=== PATIENT | female | born 1990 | race African-American/Black ===

== ENCOUNTER 2017-12-26 15:16 | Outpatient (CLI) | payer OTHER ==
[2017-12-26 15:46] LABS: ADD MAN DIFF? NO
[2017-12-26 15:48] LABS: BASOPHILS % 0.2 % (0.0-2.0); EOSINOPHILS # 0.1 10^3/ul (0.0-0.5); EOSINOPHILS % 0.5 % (0.0-7.0); HEMATOCRIT 35.4 % (37.0-47.0); HEMOGLOBIN 11.8 g/dl (12.0-16.0); LYMPHOCYTES # 1.5 10^3/ul (0.8-2.9); LYMPHOCYTES % 13.9 % (15.0-51.0); MEAN CORPUSCULAR HEMOGLOBIN 28.7 pg (29.0-33.0); MEAN CORPUSCULAR HGB CONC 33.3 g/dl (32.0-37.0); MEAN CORPUSCULAR VOLUME 86.1 fl (82.0-101.0); MEAN PLATELET VOLUME 10.4 fl (7.4-10.4); MONOCYTE # 0.7 10^3/ul (0.3-0.9); MONOCYTES % 6.6 % (0.0-11.0); NEUTROPHIL # 8.2 10^3/ul (1.6-7.5); NEUTROPHILS % 77.6 % (39.0-77.0); PLATELET COUNT 189 10^3/UL (140-415); RED BLOOD COUNT 4.11 10^6/ul (4.20-5.40)
[2017-12-26 15:48] LABS: WHITE BLOOD COUNT 10.5 10^3/ul (4.8-10.8)
[2017-12-26 15:58] LABS: ADD UMIC YES; UR ASCORBIC ACID 40 mg/dL (NEGATIVE); UR BILIRUBIN (Dip) NEGATIVE (NEGATIVE); UR BLOOD (Dip) NEGATIVE (NEGATIVE); UR CLARITY SLIGHTLY CLOUDY (CLEAR); UR COLOR YELLOW (YELLOW); UR GLUCOSE (Dip) NEGATIVE (NEGATIVE); UR KETONES (Dip) NEGATIVE (NEGATIVE); UR LEUKOCYTE ESTERASE (Dip) TRACE Leu/ul (NEGATIVE); UR NITRITE (Dip) NEGATIVE (NEGATIVE); UR RBC 2 /HPF (0-5); UR SPECIFIC GRAVITY (Dip) 1.019 (1.003-1.030); UR SQUAMOUS EPITHELIAL CELL FEW /HPF (FEW); UR TOTAL PROTEIN (Dip) 1+ mg/dl (NEGATIVE); UR UROBILINOGEN (Dip) NEGATIVE (NEGATIVE); UR WBC 3 /HPF (0-5)
[2017-12-26 16:09] LABS: INR 0.92; PROTIME 12.4 Sec (11.9-14.9)
[2017-12-26 16:10] LABS: PARTIAL THROMBOPLASTIN TIME 23.6 Sec (25.0-35.0)
[2017-12-26 16:22] LABS: ALANINE AMINOTRANSFERASE 28 IU/L (13-69); ALBUMIN 3.4 g/dl (3.3-4.9); ALKALINE PHOSPHATASE 167 IU/L (42-121); ANION GAP 13 (8-16); ASPARTATE AMINO TRANSFERASE 24 IU/L (15-46); BLOOD UREA NITROGEN 6 mg/dl (7-20); CALCIUM 9.4 mg/dl (8.4-10.2); CARBON DIOXIDE 25 mmol/L (21-31); CHLORIDE 105 mmol/L (97-110); CREATININE 0.59 mg/dl (0.44-1.00); GLUCOSE 103 mg/dl (70-220); POTASSIUM 4.1 mmol/L (3.5-5.1); SODIUM 139 mmol/L (135-144); TOTAL PROTEIN 6.8 g/dl (6.1-8.1); URIC ACID 4.8 mg/dl (3.1-7.9)
== END 2017-12-26 21:28 | disposition home or self-care (01) ==
LOC: OBT 15:16 → L-D 15:18 → OBT 21:28
DX: O13.3 Gestational [pregnancy-induced] hypertension without significant proteinuria, third trimester (principal); Z3A.38 38 weeks gestation of pregnancy
CPT/HCPCS: 76815; 80053; 81001; 84560; 85025; 85610; 85730

== ENCOUNTER 2017-12-28 14:30 | Outpatient (CLI) | payer OTHER ==
[2017-12-28 15:24] LABS: COLLECTION PERIOD 24 hrs
[2017-12-28 16:07] LABS: VOLUME 1500 mls
[2017-12-28 16:12] LABS: CREATININE 0.72 mg/dl (0.44-1.00)
[2017-12-28 16:14] LABS: COLLECTION PERIOD 24 hrs; SCRET 0.72 mg/dl (0.44-1.00); VOLUME 1500 ml/24hrs
[2017-12-28 16:15] LABS: CREATININE CLEARANCE 125.6 mls/min (84.0-162.0); CREATININE,URINE RANDOM 86.79 mg/dl (20-320)
== END 2017-12-28 17:00 | disposition home or self-care (01) ==
LOC: OBT 14:30 → L-D 14:33 → OBT 17:00
DX: O13.3 Gestational [pregnancy-induced] hypertension without significant proteinuria, third trimester (principal); Z3A.39 39 weeks gestation of pregnancy
CPT/HCPCS: 76818; 82565; 82575; 84156

== ENCOUNTER 2018-01-16 07:32 | Inpatient (IN) | payer OTHER ==
[2018-01-16] MEDS ORDERED: LIDOCAINE 1% (MPF) 30 ML INJ INJ (08:30)
[2018-01-16] MEDS ORDERED: MISOPROSTOL 200 MCG TAB PR (08:30)
[2018-01-16] MEDS ORDERED: METHYLERGONOVINE 0.2 MG INJ IM (08:30)
[2018-01-16] MEDS ORDERED: CARBOPROST 250 MCG INJ IM (08:30)
[2018-01-16] MEDS ORDERED: OXYTOCIN 30 UNITS/LR 500 ML IV (08:30)
[2018-01-16] MEDS ORDERED: BUTORPHANOL 2 MG INJ IV ×2 (08:30)
[2018-01-16] MEDS: LACTATED RINGER'S 1,000 ML IV ×4 (09:17→20:04)
[2018-01-16] MEDS: OXYTOCIN 30 UNITS/LR 500 ML IV ×3 (09:40→22:53)
[2018-01-16 09:49] LABS: ADD MAN DIFF? NO
[2018-01-16 09:52] LABS: WHITE BLOOD COUNT 6.3 10^3/ul (4.8-10.8)
[2018-01-16 09:52] LABS: BASOPHILS % 0.3 % (0.0-2.0); EOSINOPHILS % 0.2 % (0.0-7.0); HEMATOCRIT 36.4 % (37.0-47.0); HEMOGLOBIN 12.3 g/dl (12.0-16.0); LYMPHOCYTES % 15.4 % (15.0-51.0); MEAN CORPUSCULAR HGB CONC 33.8 g/dl (32.0-37.0); MEAN CORPUSCULAR VOLUME 85.8 fl (82.0-101.0); MEAN PLATELET VOLUME 10.8 fl (7.4-10.4); MONOCYTE # 0.7 10^3/ul (0.3-0.9); MONOCYTES % 10.4 % (0.0-11.0); NEUTROPHIL # 4.5 10^3/ul (1.6-7.5); NEUTROPHILS % 72.6 % (39.0-77.0); PLATELET COUNT 163 10^3/UL (140-415); RED BLOOD COUNT 4.24 10^6/ul (4.20-5.40)
[2018-01-16 10:15] LABS: INR 0.89; PROTIME 12.1 Sec (11.9-14.9); PT RATIO 0.9
[2018-01-16 10:16] LABS: PARTIAL THROMBOPLASTIN TIME 29.5 Sec (25.0-35.0)
[2018-01-16] MEDS ORDERED: FENTAnyl 2MCG/ML-ROPIV 0.2% 100 ML (10:44)
[2018-01-16] MEDS ORDERED: NALOXONE (0.4 MG/ML) INJ IV (12:30)
[2018-01-16] MEDS ORDERED: DIPHENHYDRAMINE 50 MG INJ IV (12:30)
[2018-01-16] MEDS ORDERED: ONDANSETRON 4 MG INJ IV (12:30)
[2018-01-16] MEDS: FENTAnyl 2MCG/ML-ROPIV 0.2% 100 ML BAG EPI ×2 (15:01→17:25)
[2018-01-16 21:42] LABS: RAPID PLASMA REAGIN NONREACTIVE (NR)
[2018-01-17] MEDS ORDERED: LACTATED RINGER'S 1,000 ML IV* (00:28)
[2018-01-17] MEDS ORDERED: OXYTOCIN 30 UNITS/LR 500 ML IV (00:30)
[2018-01-17] MEDS ORDERED: ZOLPIDEM 5 MG TAB PO (00:30)
[2018-01-17] MEDS ORDERED: METHYLERGONOVINE 0.2 MG INJ IM (00:30)
[2018-01-17] MEDS ORDERED: ACETAMINOPHEN 325 MG TAB PO (00:30)
[2018-01-17] MEDS ORDERED: MISOPROSTOL 200 MCG TAB PR (00:30)
[2018-01-17] MEDS ORDERED: CARBOPROST 250 MCG INJ IM (00:30)
[2018-01-17] MEDS ORDERED: MAGNESIUM HYDROXIDE 30ML CUP PO (00:30)
[2018-01-17] MEDS ORDERED: DIPHENHYDRAMINE 25 MG CAP PO (00:30)
[2018-01-17] MEDS: IBUPROFEN 800 MG TAB PO ×5 (00:45→23:36)
[2018-01-17] MEDS: HYDROCODONE/APAP (5/325) TAB PO ×3 (02:18→20:55)
[2018-01-17] MEDS: OXYTOCIN 30 UNITS/LR 500 ML IV (02:30)
[2018-01-17] MEDS: WITCH HAZEL/GLYCERIN PAD PR (05:41)
[2018-01-17] MEDS: BENZOCAINE 20% 56 ML SPRAY TOP (05:41)
[2018-01-17] MEDS: LANOLIN 7 GM TUBE TOP (05:41)
[2018-01-17 09:49] LABS: ADD MAN DIFF? NO
[2018-01-17 09:56] LABS: WHITE BLOOD COUNT 6.8 10^3/ul (4.8-10.8)
[2018-01-17 09:56] LABS: BASOPHILS % 0.1 % (0.0-2.0); EOSINOPHILS % 0.1 % (0.0-7.0); HEMATOCRIT 31.1 % (37.0-47.0); HEMOGLOBIN 10.5 g/dl (12.0-16.0); LYMPHOCYTES # 1.2 10^3/ul (0.8-2.9); LYMPHOCYTES % 17.3 % (15.0-51.0); MEAN CORPUSCULAR HEMOGLOBIN 28.8 pg (29.0-33.0); MEAN CORPUSCULAR HGB CONC 33.8 g/dl (32.0-37.0); MEAN CORPUSCULAR VOLUME 85.4 fl (82.0-101.0); MEAN PLATELET VOLUME 10.8 fl (7.4-10.4); MONOCYTE # 0.6 10^3/ul (0.3-0.9); MONOCYTES % 9.3 % (0.0-11.0); NEUTROPHIL # 4.9 10^3/ul (1.6-7.5); NEUTROPHILS % 72.6 % (39.0-77.0); PLATELET COUNT 127 10^3/UL (140-415); RED BLOOD COUNT 3.64 10^6/ul (4.20-5.40); RED CELL DISTRIBUTION WIDTH 14.1 % (11.5-14.5)
[2018-01-17] MEDS: SENNA/DOCUSATE NA (8.6MG/50MG) TAB PO (20:55)
[2018-01-17] MEDS: GUAIFENESIN 20 MG/ML 5ML CUP PO (23:36)
[2018-01-18] MEDS: IBUPROFEN 800 MG TAB PO ×2 (05:34→13:37)
[2018-01-18] MEDS: DIPHTH/TET/ACEL PERTUSS (ADULT) 0.5 ML VIAL IM* (09:54)
[2018-01-18] MEDS: VARICELLA VACCINE LIVE/PF 1,350 UNIT/0.5 ML ML SC* (09:54)
[2018-01-18] MEDS: MEASLES,MUMPS,RUBELLA VACCINE INJ SC* (09:54)
[2018-01-18] MEDS: HYDROCODONE/APAP (5/325) TAB PO (10:00)
[2018-01-18] MEDS: GUAIFENESIN 20 MG/ML 5ML CUP PO (10:00)
== END 2018-01-18 14:45 | disposition home or self-care (01) | DRG 775 ==
LOC: OBT 07:32 → PP1 01-17 00:42 → L-D 07:33 → OBT 08:30 → L-D 08:20
PROVIDERS: Obstetrics & Gynecology
PROC: 10E0XZZ Delivery of Products of Conception, External Approach (ICD-10-PCS; principal; 2018-01-16)
PROC: 0KQM0ZZ Repair Perineum Muscle, Open Approach (ICD-10-PCS; 2018-01-16)
PROC: 10907ZC Drainage of Amniotic Fluid, Therapeutic from Products of Conception, Via Natural or Artificial Opening (ICD-10-PCS; 2018-01-16)
PROC: 4A1HXCZ Monitoring of Products of Conception, Cardiac Rate, External Approach (ICD-10-PCS; 2018-01-16)
DX: O76 Abnormality in fetal heart rate and rhythm complicating labor and delivery (principal); O69.81X0 Labor and delivery complicated by cord around neck, without compression, not applicable or unspecified; O70.1 Second degree perineal laceration during delivery; Z37.0 Single live birth; Z3A.40 40 weeks gestation of pregnancy
CPT/HCPCS: 62319; 76815; 85025; 85610; 85730; 86592; 86900; 86901

== ENCOUNTER 2018-03-27 11:57 | Emergency (ER) | payer OTHER | END 2018-03-27 13:52 | disposition home or self-care (01) | LOC: E/R 11:57 | DX: M25.532 Pain in left wrist (principal) | CPT/HCPCS: 29125; 73110-LT; 99283-25 ==